=== PATIENT | female | born 1980 | race Two or more races ===

== ENCOUNTER 2017-06-07 21:44 | Emergency (ER) | payer OTHER ==
[~2017-06-07] VITALS: Ht 170.2 cm; Wt 127.0 kg
[2017-06-07 22:10] VITALS: BP 137/93
--- NOTE | 2017-06-07 23:22 | NUR ---
INFORMED BY ADMITTING "PT LEFT"
== END 2017-06-07 23:23 | disposition left against medical advice (07) ==
LOC: ER 21:46
DX: Z53.21 Procedure and treatment not carried out due to patient leaving prior to being seen by health care provider (principal)
CPT/HCPCS: A4606; Z7610